=== PATIENT | male | born 1945 | race Caucasian/White ===

== ENCOUNTER 2016-05-11 13:33 | Emergency (ER) | payer OTHER ==
[~2016-05-11] VITALS: Ht 177.8 cm; Wt 77.7 kg
[2016-05-11 13:35] VITALS: BP 191/109; PULSE 67; RESP 18; TEMP 98; O2SAT 98
[2016-05-11] MEDS ORDERED: LEVO50TA4 PO (15:09)
[2016-05-11] MEDS ORDERED: ATEN50TA PO (15:09)
[2016-05-11] MEDS ORDERED: ALLO300T2 PO (15:09)
[2016-05-11] MEDS ORDERED: LATA0.002 EACH EYE (15:09)
[2016-05-11] MEDS ORDERED: ASPI81CH37 CHEW (15:09)
[2016-05-11] MEDS ORDERED: SYMB160A INH (15:09)
[2016-05-11] MEDS ORDERED: ENALAPRILAT 2.5 MG/2 ML VIAL IV PUSH ONE (15:15)
[2016-05-11 15:25] VITALS: BP 206/95; PULSE 56; RESP 16; O2SAT 98
[2016-05-11 15:28] LABS: POTASSIUM 3.9 MEQ/L (3.5-5.1)
[2016-05-11 15:31] LABS: BICARBONATE 28.6 MEQ/L (21.0-32.0)
[2016-05-11] MEDS ORDERED: LISI-515 PO (15:55)
--- NOTE | 2016-05-11 15:55 | PD ---
HPI Chief Complaint: Hypertension Time Seen by Provider: 14:13 Travel History International Travel<30 days: No Contact w/Intl Traveler<30days: No Traveled to known affect area: No History of Present Illness HPI This is a 70-year-old male who has a history of hypertension who presents to the emergency department having felt a little bit lightheaded dizzy this morning prompting him to check his blood pressure. When he checked his blood pressure it was in the 180s systolic. He checked it subsequently liter and it was in the 200s systolic. He went to [facility] and checked it again and it was very high and he called his primary care physician and told him to come in to the emergency Department. I also advised him that if he wanted he could take an extra dose of his atenolol. Currently his only blood pressure medicine is atenolol 50 mg twice a day. He denies any chest pain or difficulty walking or talking. PFSH Past Medical History Asthma: Yes Cardiovascular Problems: Yes (HTN) COPD: Yes Hypertension: Yes Respiratory: Yes (Asthma ) Tetanus Vaccination: < 5 Years Influenza Vaccination: No Past Surgical History Other Surgery: Yes (For kidney stone removal) Social History Alcohol Use: Yes (Wine every night) Tobacco Use: No Substance Use: No Allergies-Medications (Allergen,Severity, Reaction): Coded Allergies: No Known Allergies (Unverified , 05/11/16) Reported Meds & Prescriptions Reported Meds & Active Scripts Active Reported Symbicort Inh (Budesonide/Formoterol Fumarate) 160-4.5 Mcg/Act Aero 2 Puff INH Q12HR Latanoprost Opth Drops (Latanoprost) 0.005% Drops 1 Drop EACH EYE HS Refrigerate until opened. Aspirin Low Dose (Aspirin) 81 Mg Chew 81 Mg CHEW DAILY Levothyroxine (Levothyroxine Sodium) 50 Mcg Tab 50 Mcg PO DAILY Allopurinol 300 Mg Tab 300 Mg PO DAILY Atenolol 50 Mg Tab 50 Mg PO DAILY Review of Systems Except as stated in HPI: all other systems reviewed are Neg Physical Exam Narrative GENERAL:Well appearing, no acute distress SKIN: Warm and dry. HEAD: Atraumatic. Normocephalic. EYES: Pupils equal and round. No injection or drainage. ENT: Moist mucous membranes NECK: Trachea midline. CARDIOVASCULAR: Regular rate and rhythm. No murmur appreciated. RESPIRATORY: Clear to auscultation. Breath sounds equal bilaterally. GASTROINTESTINAL: Abdomen soft, non-tender, nondistended. MUSCULOSKELETAL: No obvious deformities. NEUROLOGICAL: Awake and alert. No obvious cranial nerve deficits. Moving all extremities. PSYCHIATRIC: Appropriate mood and affect; insight and judgment normal. Data Data Last Documented VS Vital Signs Date Time Temp Pulse Resp B/P Pulse Ox O2 Delivery O2 Flow Rate FiO2 05/11/16 15:25 56 16 206/95 98 Room Air 05/11/16 13:35 98.0 Orders Basic Metabolic Panel (Bmp) (05/11/16 15:02) Electrocardiogram (05/11/16 ) Enalaprilat Inj (Vasotec Inj) (05/11/16 15:15) Labs Laboratory Tests Test 05/11/16 15:15 Sodium Level 140 MEQ/L Potassium Level 3.9 MEQ/L Chloride Level 104 MEQ/L Carbon Dioxide Level 28.6 MEQ/L Anion Gap 7 MEQ/L Blood Urea Nitrogen 13 MG/DL Creatinine 1.20 MG/DL Estimat Glomerular Filtration 60 ML/MIN Rate Random Glucose 101 MG/DL Calcium Level 8.9 MG/DL MDM Medical Decision Making Medical Screen Exam Complete: Yes Emergency Medical Condition: Yes Interpretation(s) EKG: Sinus bradycardia with no ST changes Electrolytes reassuring Differential Diagnosis Hypertension, hypertensive urgency, hypertensive emergency Narrative Course This is a 70-year-old male who presents to the emergency department with high blood pressure. He did have some lightheadedness and a slight headache this morning but no chest pain or neurologic symptoms. He was placed on a monitor and an IV was established. He was given 2.5 mg of Vasotec. I think he should be discharged on an WHITNEY inhibitor. I am hesitant to increase his atenolol causes heart rate is 56 here in the emergency department. He should follow-up with his primary care physician within the week and take his blood pressure once a day. Diagnosis Primary Impression: Hypertension Qualified Code: I10 - Essential hypertension Patient Instructions: General Instructions Additional Instructions: If you develop severe chest pain, shortness of breath, sweating, lightheadedness , dizziness or difficulty breathing return to the emergency department immediately. Followup with your primary care physician in 2-3 days without fail. Keep a blood pressure log and take her blood pressure at the same time once a day. Med/Other Pt SpecificInfo: Prescription(s) given Scripts Lisinopril 20 Mg Tab20 Mg PO DAILY #30 TAB Ref 0 Prov:Emilie Granda MD 05/11/16 Disposition: 01 DISCHARGE HOME Condition: Stable Emilie Granda MD May 11, 2016 15:55
--- NOTE | 2016-05-12 14:36 | EKG ---
Date Performed: 05/11/2016 Time Performed: 15:17:12 PTAGE: 70 years EKG: Sinus bradycardia Normal ECG except for rate NO PREVIOUS TRACING DOCTOR: Uriel Jason Interpretating Date/Time 05/12/2016 14:34:20
== END 2016-05-11 16:13 | disposition home or self-care (01) ==
LOC: PHED 13:33 → PHEFT 16:13
DX: I10 Essential (primary) hypertension (principal)
CPT/HCPCS: 80048; 93005; 96374

== ENCOUNTER 2016-05-23 20:19 | Emergency (ER) | payer OTHER ==
[~2016-05-23 20:19] MED LIST: ALLO300T2 PO; ASPI81CH37 CHEW; ATEN50TA PO; LATA0.002 EACH EYE; LEVO50TA4 PO; LISI-515 PO; SYMB160A INH
[2016-05-23 20:22] VITALS: BP 189/106; PULSE 68; RESP 20; TEMP 98; O2SAT 96
[2016-05-23 20:32] VITALS: BP 218/119; PULSE 52; RESP 20; O2SAT 95
[2016-05-23 20:33] VITALS: BP 205/107; PULSE 59; O2SAT 95
[2016-05-23] MEDS ORDERED: LISI40TA PO (20:42)
[2016-05-23] MEDS ORDERED: cloNIDine HCL 0.1 MG TAB PO ONE (21:00)
--- NOTE | 2016-05-23 21:10 | PD ---
HPI Chief Complaint: Abnormal Results Time Seen by Provider: 20:29 Travel History International Travel<30 days: No Contact w/Intl Traveler<30days: No Traveled to known affect area: No History of Present Illness HPI 70yo M with PMH of hypothyroidism, gout, HTN presents to the ED with c/o persistent elevated blood pressure. Pt was evaluated at [place] on 05/11/16 for elevated blood pressure and was started on lisinopril 20mg in addition to his atenolol 50mg. Pt called his PMD in [place] and lisinopril was increased to 40mg 2 days ago. Denies any fever, chest pain, sob, n/v, abdominal pain, headache, focal weakness or numbness. PFSH Past Medical History Asthma: Yes Cardiovascular Problems: Yes (HTN) COPD: Yes Hypertension: Yes Respiratory: Yes (Asthma ) Past Surgical History Other Surgery: Yes (For kidney stone removal) Social History Alcohol Use: Yes (Wine every night) Tobacco Use: No Substance Use: No Allergies-Medications (Allergen,Severity, Reaction): Coded Allergies: No Known Allergies (Unverified , 05/23/16) Reported Meds & Prescriptions Reported Meds & Active Scripts Active Reported Lisinopril 40 Mg Tab 40 Mg PO DAILY Symbicort Inh (Budesonide/Formoterol Fumarate) 160-4.5 Mcg/Act Aero 2 Puff INH Q12HR Latanoprost Opth Drops (Latanoprost) 0.005% Drops 1 Drop EACH EYE HS Refrigerate until opened. Aspirin Low Dose (Aspirin) 81 Mg Chew 81 Mg CHEW DAILY Levothyroxine (Levothyroxine Sodium) 50 Mcg Tab 50 Mcg PO DAILY Allopurinol 300 Mg Tab 300 Mg PO DAILY Atenolol 50 Mg Tab 50 Mg PO BID Review of Systems Except as stated in HPI: all other systems reviewed are Neg Physical Exam Narrative GENERAL: 70yo M not in distress. SKIN: Warm and dry. HEAD: Atraumatic. Normocephalic. EYES: Pupils equal and round. EOMI. No scleral icterus. No injection or drainage. ENT: No nasal bleeding or discharge. Mucous membranes pink and moist. NECK: Trachea midline. No JVD. CARDIOVASCULAR: Regular rate and rhythm. No murmur appreciated. RESPIRATORY: No accessory muscle use. Clear to auscultation. Breath sounds equal bilaterally. GASTROINTESTINAL: Abdomen soft, non-tender, nondistended. MUSCULOSKELETAL: No obvious deformities. No clubbing. No cyanosis. No edema. NEUROLOGICAL: Awake and alert. No obvious cranial nerve deficits. Motor grossly within normal limits. Normal speech. PSYCHIATRIC: Appropriate mood and affect; insight and judgment normal. Data Data Last Documented VS Vital Signs Date Time Temp Pulse Resp B/P Pulse Ox O2 Delivery O2 Flow Rate FiO2 05/23/16 21:20 54 20 206/96 95 Room Air 05/23/16 20:22 98.0 Orders Clonidine (Catapres) (05/23/16 21:00) Basic Metabolic Panel (Bmp) (05/23/16 20:51) Labs Laboratory Tests Test 05/23/16 21:00 Sodium Level 144 MEQ/L Potassium Level 4.1 MEQ/L Chloride Level 110 MEQ/L Carbon Dioxide Level 23.9 MEQ/L Anion Gap 10 MEQ/L Blood Urea Nitrogen 19 MG/DL Creatinine 1.20 MG/DL Estimat Glomerular Filtration 60 ML/MIN Rate Random Glucose 111 MG/DL Calcium Level 8.6 MG/DL [facility] Medical Decision Making Medical Screen Exam Complete: Yes Emergency Medical Condition: Yes Differential Diagnosis Hypertensive emergency vs. urgency vs. uncontrolled chronic HTN Narrative Course 70yo well appearing male here with elevated blood pressure. Pt has no symptoms. Creatinine is 1.20 which is unchanged from last visit. Pt given clonidine 0.1mg PO and repeat BP is now 148/78. Pt reevaluated at bedside and still no symptoms. Return precautions given. Diagnosis Primary Impression: Hypertension Qualified Code: I10 - Essential hypertension Patient Instructions: General Instructions Departure Forms: Tests/Procedures Additional Instructions: Please follow up with your PMD in 3-7 days. Return to the ED if symptoms worsen. Please add clonidine to control blood pressure only if needed. Med/Other Pt SpecificInfo: Prescription(s) given Scripts Clonidine 0.1 Mg Tab0.1 Mg PO DAILY 7 Days Ref 0 Prov:GuevaraLinnea DO 05/23/16 Disposition: 01 DISCHARGE HOME Condition: Stable GuevaraLinnea DO May 23, 2016 21:10
[2016-05-23 21:20] VITALS: BP 206/96; PULSE 54; RESP 20; O2SAT 95
[2016-05-23 21:35] LABS: POTASSIUM 4.1 MEQ/L (3.5-5.1)
[2016-05-23 21:38] LABS: BICARBONATE 23.9 MEQ/L (21.0-32.0)
[2016-05-23 22:20] VITALS: BP 148/78; PULSE 50; RESP 16; O2SAT 97
[2016-05-23] MEDS ORDERED: CLON0.1T PO (22:41)
[2016-05-23 22:45] VITALS: BP 168/87; PULSE 52; RESP 16; O2SAT 97
== END 2016-05-23 23:02 | disposition home or self-care (01) ==
LOC: PHED 20:19
DX: I10 Essential (primary) hypertension (principal); M10.9 Gout, unspecified; E03.9 Hypothyroidism, unspecified
CPT/HCPCS: 80048; 99283

== ENCOUNTER 2016-05-28 12:44 | Emergency (ER) | payer OTHER ==
[~2016-05-28] VITALS: Ht 177.8 cm; Wt 75.0 kg
[~2016-05-28 12:44] MED LIST changes: +CLON0.1T PO; -LISI-515 PO; +LISI40TA PO
[2016-05-28 12:46] VITALS: BP 180/100; PULSE 60; RESP 18; TEMP 97.9; O2SAT 96
--- NOTE | 2016-05-28 13:33 | PD ---
HPI Chief Complaint: Hypertension Time Seen by Provider: 13:00 Travel History International Travel<30 days: No Contact w/Intl Traveler<30days: No Traveled to known affect area: No History of Present Illness HPI Is a 70-year-old man who presents emergency department concern about his elevated blood pressure. Blood pressures been up in the 180s in 200s over 100. He's been in place. Blood pressure is been out of town. He is on atenolol. His primary doctor told him to double it. He was seen here and had lisinopril added. Is here again and had clonidine added. He's now intermittently using the clonidine and lisinopril. He is not really regular regimen at this point. Doesn't have a primary care Dr. Tolbert squeezing the one he had delayed in [place]. No chest pain. No trouble breathing. No other complaints. History Past Medical History Narrative Medical High blood pressure Social History Alcohol Use: Yes (Wine every night) Tobacco Use: No Allergies-Medications (Allergen,Severity, Reaction): Coded Allergies: No Known Allergies (Unverified , 05/28/16) Reported Meds & Prescriptions Reported Meds & Active Scripts Active Clonidine (Clonidine HCl) 0.1 Mg Tab 0.1 Mg PO DAILY 7 Days Reported Lisinopril 40 Mg Tab 40 Mg PO DAILY Symbicort Inh (Budesonide/Formoterol Fumarate) 160-4.5 Mcg/Act Aero 2 Puff INH Q12HR Latanoprost Opth Drops (Latanoprost) 0.005% Drops 1 Drop EACH EYE HS Refrigerate until opened. Aspirin Low Dose (Aspirin) 81 Mg Chew 81 Mg CHEW DAILY Levothyroxine (Levothyroxine Sodium) 50 Mcg Tab 50 Mcg PO DAILY Allopurinol 300 Mg Tab 300 Mg PO DAILY Atenolol 50 Mg Tab 50 Mg PO BID Review of Systems Except as stated in HPI: all other systems reviewed are Neg Physical Exam Narrative GENERAL: Well-appearing 70-year-old man, no acute distress. SKIN: Warm and dry. CARDIOVASCULAR: Warm and well perfused. RESPIRATORY: Normal rate and effort. MUSCULOSKELETAL: No deformities. NEUROLOGICAL: Awake and alert. No gross deficits. Data Data Last Documented VS Vital Signs Date Time Temp Pulse Resp B/P Pulse Ox O2 Delivery O2 Flow Rate FiO2 05/28/16 12:53 16 98 Room Air 05/28/16 12:46 97.9 60 180/100 MDM Medical Decision Making Medical Screen Exam Complete: Yes Emergency Medical Condition: Yes Differential Diagnosis Hypertension, secondary hypertension, hypertensive crisis Narrative Course Medical decision-making new para this 70-year-old man who presents to the emergency department with elevated blood pressure. He is fairly asymptomatic. Usually preoccupied with his blood pressure. He takes many times each day. He follows over the hours. I recommended the patient maintained a regular regimen of blood pressure medications including his atenolol 50 twice a day, lisinopril 40 mg daily. I recommend avoiding the clonidine. Diagnosis Primary Impression: Hypertension Additional Instructions: Continue atenolol 50 mg twice daily. Continue lisinopril 40 mg daily. Avoid clonidine. Follow-up with your primary doctor in the next 2-4 days. Disposition: 01 DISCHARGE HOME Condition: Stable Thomas Riddle MD May 28, 2016 13:33
[2016-05-28 13:52] VITALS: BP 185/104
== END 2016-05-28 14:25 | disposition home or self-care (01) ==
LOC: PHED 12:44
DX: I10 Essential (primary) hypertension (principal)
CPT/HCPCS: 99283